=== PATIENT | male | born 1985 | race Caucasian/White ===

== ENCOUNTER → 2016-03-29 | Outpatient (CLI) | payer OTHER ==
--- NOTE | 2016-03-29 10:46 | REP ---
Clinical: Chest pain. " Chest deformity ". Comparison: None . Technique: PA and lateral. Findings: The mediastinum and cardiac silhouette are normal. The lung brown are clear and without acute consolidation, effusion, or pneumothorax. The skeletal structures are intact and normal. Impression: 1. No acute cardiopulmonary process. Signed by Keegan Pandey MD 03/29/2016 10:38 A
== END ==
LOC: M WUC 10:29
PROVIDERS: ATTEND Surgery
DX: M95.4 Acquired deformity of chest and rib (principal)

== ENCOUNTER → 2016-06-03 | Outpatient (CLI) | payer MEDICAID ==
[2016-06-03 16:05] LABS: BASO % 0.7 % (0.0-1.0); EOS # 0.1 K/mm3 (0.0-0.50); EOS % 3.4 % (0.0-3.0); LARGE UNSTAINED CELL # 0.1 K/mm3 (0.0-0.4); LARGE UNSTAINED CELL % 3.4 % (0.0-4.0); LYMPH # 1.8 K/mm3 (1.5-6.5); LYMPH % 43.5 % (24.0-44.0); MEAN CORPUSCULAR HEMOGLOBIN 29.4 pg (27.0-33.0); MEAN CORPUSCULAR VOLUME 86.5 fl (80.0-96.0); MONO # 0.2 K/mm3 (0.0-0.8); NEUTROPHILS # 1.6 K/mm3 (1.8-7.7); NEUTROPHILS % 43.1 % (36.0-66.0); PLATELET COUNT, AUTOMATED 202 k/mm3 (150-450); RED CELL DISTRIBUTION WIDTH 12.3 % (11.5-14.5); WHITE BLOOD COUNT 3.8 K/mm3 (4.0-10.0)
[2016-06-03 16:30] LABS: ALBUMIN 3.6 GM/DL (3.2-5.2); ALBUMIN/GLOBULIN RATIO 1.09 (1.00-1.93); ALKALINE PHOSPHATASE 109 U/L (45-117); ALT/SGPT 19 U/L (12-78); ANION GAP 9 MEQ/L (8-16); AST/SGOT 19 U/L (15-37); BILIRUBIN,TOTAL 0.3 MG/DL (0.2-1.0); BLOOD UREA NITROGEN 10 MG/DL (7-18); CALCIUM LEVEL 8.1 MG/DL (8.5-10.1); CARBON DIOXIDE LEVEL 27 MEQ/L (21-32); CHLORIDE LEVEL 106 MEQ/L (98-107); CREATININE FOR GFR 0.85 MG/DL (0.70-1.30); GLOMERULAR FILTRATION RATE > 60.0 (>60); GLUCOSE, FASTING 106 MG/DL (70-105); POTASSIUM SERUM 3.9 MEQ/L (3.5-5.1); SODIUM LEVEL 142 MEQ/L (136-145); TOTAL PROTEIN 6.9 GM/DL (6.4-8.2)
[2016-06-04 13:07] LABS: HEPATITIS B SURFACE ANTIBODY POSITIVE (POSITIVE)
== END ==
LOC: M LAB 15:16
PROVIDERS: ATTEND Nurse Practitioner Family
DX: Z02.89 Encounter for other administrative examinations (principal)

== ENCOUNTER → 2016-09-07 | Outpatient (CLI) | payer OTHER ==
[2016-09-08 10:00] LABS: HEPATITIS B SURFACE ANTIBODY POSITIVE (POSITIVE)
[2016-09-10 14:16] LABS: ALT 21 IU/L (0-55); GGT 13 IU/L (0-65); HAPTOGLOBIN 141 mg/dL (34-200); HEPATITIS C QUANTITATION HCV Not Detected IU/mL (.); NECROINFLAM SCORE 0.06 (0.00-0.17); NECROINFLAMM GRADE A0-No activity (.); TOTAL BILIRUBIN 0.6 mg/dL (0.0-1.2)
== END ==
LOC: M LAB 12:58
PROVIDERS: ATTEND Nurse Practitioner Family
DX: B18.2 Chronic viral hepatitis C (principal); B16.9 Acute hepatitis B without delta-agent and without hepatic coma; B15.9 Hepatitis A without hepatic coma

== ENCOUNTER 2019-06-14 15:10 | Emergency (ER) | payer OTHER ==
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
--- NOTE | 2019-06-14 16:36 | REP ---
LEFT KNEE, FOUR VIEWS: FINDINGS: There is no evidence of an acute fracture, dislocation or intrinsic bone disease. IMPRESSION: No fracture or dislocation. Electronically Signed by Leonides Hung MD 06/14/2019 05:01 P
--- NOTE | 2019-06-14 16:36 | REP ---
RIGHT LOWER LEG, AP AND LATERAL: AP and lateral views of the right lower leg are performed and demonstrate no fracture or dislocation. No intrinsic osseous pathology is seen. IMPRESSION: No fracture or dislocation. Electronically Signed by Leonides Hung MD 06/14/2019 05:01 P
[2019-06-14 17:11] VITALS: BP 139/77
== END 2019-06-14 17:13 | disposition home or self-care (01) ==
LOC: EDBD 15:10 → M ED 15:10
DX: S00.01XA Abrasion of scalp, initial encounter (principal); S80.12XA Contusion of left lower leg, initial encounter; S80.11XA Contusion of right lower leg, initial encounter; V85.0XXA Driver of special construction vehicle injured in traffic accident, initial encounter; Y92.9 Unspecified place or not applicable; Y99.9 Unspecified external cause status; F17.200 Nicotine dependence, unspecified, uncomplicated

== ENCOUNTER 2019-10-08 10:39 | Emergency (ER) | payer OTHER ==
[~2019-10-08] VITALS: Ht 180.3 cm; Wt 75.0 kg
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
[2019-10-08] MEDS ORDERED: LIDOCAINE 2% MDV 20ML VIAL SC ONE (12:30)
[2019-10-08] MEDS ORDERED: BOOSTRIX/ADACEL VACCINE (DIPHTH/PERTUSS/ACELL/TETANUS) 0.5ML SYR IM ONE (12:30)
[2019-10-08] MEDS ORDERED: CEPHALEXIN 500 MG CAP PO ONE (13:30)
[2019-10-08] MEDS ORDERED: KEFL500C17 PO (13:31)
[2019-10-08 13:58] VITALS: BP 132/76
== END 2019-10-08 13:59 | disposition home or self-care (01) ==
LOC: M ED 10:39
DX: S91.002A Unspecified open wound, left ankle, initial encounter (principal); X58.XXXA Exposure to other specified factors, initial encounter; Y92.018 Other place in single-family (private) house as the place of occurrence of the external cause